=== PATIENT | female | born 1990 | race Caucasian/White ===

== ENCOUNTER 2019-06-28 13:21 | Emergency (ER) | payer OTHER ==
[~2019-06-28] VITALS: Ht 160 cm; Wt 97.5 kg
[2019-06-28] MEDS ORDERED: ALBUTEROL/IPRATROPIUM 3 ML NEB ONE ×3 (13:36→15:24)
[2019-06-28] MEDS ORDERED: SODIUM CHLORIDE 0.9% 1000ML 1,000 ML ONE (14:10)
[2019-06-28] MEDS ORDERED: METHYLPREDNISOLONE SOD SUCC 125 MG/2ML VIAL ONE (14:10)
[2019-06-28] MEDS ORDERED: MAGNESIUM SULFATE 2GM/50ML 50 ML IV ONE (14:29)
--- NOTE | 2019-06-28 14:46 | Diagnostic Imaging Report ---
EXAMINATION: CXR 2 VIEW - HOPD INDICATION: Chest pain COMPARISON: None FINDINGS: LINES/TUBES:None LUNGS:The lungs are well-inflated. No focal consolidation or pulmonary edema. PLEURA:No pleural effusion or pneumothorax. MEDIASTINUM:The cardiomediastinal silhouette appears normal in size and shape. BONES/SOFT TISSUES:No acute osseous injury. ABDOMEN:No free air under the diaphragm. IMPRESSION: No focal pneumonia or pulmonary edema. Signed by: Geena Horton MD on 06/28/2019 2:43 PM
--- NOTE | 2019-06-28 15:25 | NUR ---
Contacted the transfer center for transfer/admit.
--- NOTE | 2019-06-28 15:34 | NUR ---
Doc to doc done for MICHAEL
--- NOTE | 2019-06-28 15:43 | NUR ---
[facility] called for transport
--- NOTE | 2019-06-28 16:23 | NUR ---
Report to full charge bookkeeper
[2019-06-28 16:34] VITALS: BP 126/88
== END 2019-06-28 16:30 | disposition short-term general hospital (02) ==
LOC: FSED 13:21
DX: O99.511 Diseases of the respiratory system complicating pregnancy, first trimester (principal); Z3A.01 Less than 8 weeks gestation of pregnancy; J45.22 Mild intermittent asthma with status asthmaticus; J00 Acute nasopharyngitis [common cold]
CPT/HCPCS: 71046; 80048; 81003; 81025; 85025; 87400; 93005; 99284; J2930; J3475; J7030